=== PATIENT | female | born 1955 | race Caucasian/White ===

== ENCOUNTER 2017-05-31 15:47 | Emergency (ER) | payer OTHER ==
[~2017-05-31] VITALS: Ht 165.1 cm; Wt 78.9 kg
[2017-05-31 19:23] VITALS: BP 147/84
== END 2017-05-31 19:23 | disposition home or self-care (01) ==
LOC: ED 15:47
DX: I16.0 Hypertensive urgency (principal); G89.29 Other chronic pain; M54.5 Low back pain; Z91.013 Allergy to seafood
CPT/HCPCS: J0780; J3010